=== PATIENT | male | born 2000 ===

== ENCOUNTER → 2018-01-30 | Emergency (ER) | payer OTHER ==
[~2018-01-30] VITALS: Ht 167.6 cm; Wt 69.9 kg
[~2018-01-30] MED LIST: OSEL75CA PO; TUSSI PRES-B L120 M1 PO; TYLENOL EXTRA500 MG PO; ZYNCOF 20-400120 ML PO
== END | disposition home or self-care (01) ==
LOC: ER 22:48
DX: J11.1 Influenza due to unidentified influenza virus with other respiratory manifestations (principal)